=== PATIENT | male | born 1950 | race Caucasian/White ===

== ENCOUNTER 2017-09-27 09:34 | Day surgery (SDC) | payer MEDICARE, OTHER ==
[2017-09-26 16:28] VITALS: BMI 29.3
[2017-09-27 11:07] LABS: Hemoglobin 15.5 g/dL (14.0-18.0)
[2017-09-27 11:31] LABS: Anion Gap 16 mmol/L (10-20); BUN (Urea Nitrogen) 16 mg/dL (8.4-25.7); Calc. Creatinine Clearance 88 mL/min (70-130); Calcium 10.7 mg/dL (7.8-10.44); Carbon Dioxide 23 mmol/L (23-31); Chloride 105 mmol/L (98-107); Estimated GFR-MDRD 79; Glucose 106 mg/dL (80-115); Potassium 5.2 mmol/L (3.5-5.1); Sodium 139 mmol/L (136-145)
[2017-09-27] MEDS ORDERED: Fentanyl 100 MCG/2 ML VIAL ONE (12:12)
[2017-09-27] MEDS ORDERED: Lidocaine 1% w/Epinephrine 1:200K 30 ML VIAL ONE (12:20)
--- NOTE | 2017-09-27 12:41 | EKG ---
Test Reason : PREOP Blood Pressure : / mmHG Vent. Rate : 076 BPM Atrial Rate : 076 BPM P-R Int : 160 ms QRS Dur : 084 ms QT Int : 360 ms P-R-T Axes : 054 -21 034 degrees QTc Int : 405 ms Normal sinus rhythm Normal ECG When compared with ECG of 19-OCT-2016 09:27, No significant change was found Confirmed by DR. Alexander ALBERT ([id number]) on 09/27/2017 12:40:51 PM Referred By: JONNA Confirmed By:DR. Alexander ALBERT
[2017-09-27] MEDS ORDERED: Lidocaine 1% PF 5 ML VIAL ONE (15:51)
[2017-09-27] MEDS ORDERED: Propofol 200 MG/20 ML VIAL ONE (15:51)
--- NOTE | 2017-09-28 13:18 | OP ---
PREOPERATIVE DIAGNOSES: 1. Left tympanic membrane perforation. 2. Left conductive hearing loss. POSTOPERATIVE DIAGNOSES: 1. Left tympanic membrane perforation. 2. Left conductive hearing loss. PROCEDURE PERFORMED: Left fat graft myringoplasty. SURGEON: Dr. Elpidio Leone. ESTIMATED BLOOD LOSS: 0 mL. COMPLICATIONS: None. ANESTHESIA: TIVA. PROCEDURE IN DETAIL: The patient taken to the operating room and an LMA, TIVA anesthesia was obtaine d. The left ear was prepped with Betadine. 1% lidocaine was injected a total of 0.1 mL into the pos terior aspect of the left earlobe. Following this, an incision was made through the skin and the lef t posterior earlobe and a large piece of fat was harvested. The skin was then closed using a chromic gut stitch. Following this, the operating microscope was used to visualize the left tympanic membra ne. A 20% perforation was visualized and a Jim needle and cup forceps were used to remove the edge s of this perforation, resulting in a 30% perforation. Following this, the middle ear mucosa was not ed to be healthy and intact was then placed in a dumbbell shaped fashion within the tympanic membrane perforation. The patient tolerated the procedure well.
== END 2017-09-27 14:27 | disposition home or self-care (01) ==
LOC: SDC 09:34
PROVIDERS: ATTEND Otolaryngology Plastic Surgery within the Head & Neck
PROC: 09R807Z Replacement of Left Tympanic Membrane with Autologous Tissue Substitute, Open Approach (ICD-10-PCS; principal; 2017-09-27)
DX: H72.92 Unspecified perforation of tympanic membrane, left ear (principal); H90.6 Mixed conductive and sensorineural hearing loss, bilateral; H69.80 Other specified disorders of Eustachian tube, unspecified ear; J30.9 Allergic rhinitis, unspecified; Z98.890 Other specified postprocedural states
CPT/HCPCS: 80048; 85014; 85018; 93005; 93010; J2001; J2704; J3010